=== PATIENT | male | born 2000 | race African-American/Black ===

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

== ENCOUNTER 2023-07-10 11:02 | Emergency (ER) | payer OTHER ==
--- NOTE | 2023-07-10 11:58 | ED ---
Chest Pain HPI - General Chief Complaint: Chest Pain Stated Complaint: chest tightness Time Seen by Provider: 07/10/23 11:54 Source: patient, RN notes reviewed Mode of arrival: ambulatory Limitations: no limitations - History of Present Illness Initial Comments: This is a 23 year old male who presents to the emergency department for chest pain. States that this started 2 days ago and describes this as a tightness. He reports a history of asthma, and states that chest tightness typically occurs with this, but not to this severity. He saw his PCP today, who said that he tested positive for Covid and influenza. (Tests are negative in the ED). She also noticed that his eyes were jaundice and his urine was very dark. She was concerned about his liver and kidney function, and sent him to the emergency department for further evaluation. Patient believes that his eyes have been yellow for 2-3 days. States that he has also had a reduced appetite, nausea, headaches, and fatigue for the last couple of days. MD Complaint: chest pain - Related Data Home Medications Medication Instructions Recorded Confirmed Azithromycin [Zithromax Z-pack (6 See Taper PO DAILY 07/10/23 07/10/23 tabs)] Allergies Allergy/AdvReac Type Severity Reaction Status Date / Time ibuprofen [From Motrin] Allergy Anaphylaxis Verified 07/10/23 16:25 Review of Systems ROS Statement: Those systems with pertinent positive or pertinent negative responses have been documented in the HPI. ROS Other: All systems not noted in ROS Statement are negative. Past Medical History Past Medical History: Asthma History of Any Multi-Drug Resistant Organisms: None Reported Past Surgical History: No Surgical Hx Reported Past Psychological History: ADD/ADHD Smoking Status: Current every day smoker Past Alcohol Use History: None Reported Past Drug Use History: None Reported, Marijuana General Exam - General Exam Comments Initial Comments: Visual Physical Exam Vital signs reviewed General: Well-appearing, nontoxic, no acute distress. Head: Normocephalic, atraumatic Eyes: PERRLA, EOMI ENT: Airway patent Chest: Nonlabored breathing Skin: No visual rash, normal skin tone Neuro: Alert and oriented 3 Musculoskeletal: No gross abnormalities Limitations: no limitations General appearance: alert, in no apparent distress Head exam: Present: atraumatic, normocephalic, normal inspection Eye exam: Present: scleral icterus Respiratory exam: Present: decreased breath sounds, prolonged expiratory Cardiovascular Exam: Present: regular rate, normal rhythm, normal heart sounds. Absent: systolic murmur, diastolic murmur, rubs, gallop, clicks GI/Abdominal exam: Present: soft, normal bowel sounds. Absent: distended, tenderness, guarding, rebound, rigid Neurological exam: Present: alert, oriented X3, CN II-XII intact Psychiatric exam: Present: normal affect, normal mood Skin exam: Present: other (jaundice) Course Vital Signs 07/10/23 07/10/23 07/10/23 11:17 15:00 15:03 Temperature 99.4 F 99.2 F Pulse Rate 105 H 110 H Respiratory 16 18 17 Rate Blood Pressure 134/86 131/86 O2 Sat by Pulse 98 98 Oximetry 07/10/23 07/10/23 07/10/23 16:25 16:52 16:58 Temperature 99.1 F Pulse Rate 89 104 H 96 Respiratory 18 Rate Blood Pressure 115/75 O2 Sat by Pulse 99 Oximetry 07/10/23 07/10/23 07/10/23 17:29 17:39 18:12 Temperature 98.9 F Pulse Rate 100 94 126 H Respiratory 18 Rate Blood Pressure 115/72 O2 Sat by Pulse 98 Oximetry 07/10/23 07/10/23 19:32 23:05 Temperature 99.2 F 99.2 F Pulse Rate 111 H 103 H Respiratory 20 18 Rate Blood Pressure 128/78 137/99 O2 Sat by Pulse 100 100 Oximetry Chest Pain MDM - MDM This is a 23-year-old male who presents to the emergency department for chest pain. Was pt. sent in by a medical professional or institution? @ -His admitted attorneys Did you speak to anyone other than the patient for history? @ -No Did you review nursing and triage notes? @ -Yes, and I agree, it is accurate with regards to the patient's symptoms. Were old charts reviewed? @ -No Differential Diagnosis? @ -Differential Chest Pain: Stable Angina, Unstable Angina, STEMI, NSTEMI Aortic Dissection, Pneumothorax, Musculoskeletal, Esophageal Spasm GERD, Cholecystitis, Pancreatitis, Zoster, this is not meant to be an all-inclusive list. EKG interpreted by me (3pts min.)? @ -EKG interpreted by me demonstrating the following: Sinus tachycardia. Ventricular rate 118 BPM, VA interval 151 ms, QRS duration 93 ms, QTc 380 ms. X-rays interpreted by me (1pt min.)? @ -Chest x-ray obtained, my interpretation identifies no localized consolidations or infiltrates. CT interpreted by me (1pt min.)? @ -Not obtained U/S interpreted by me (1pt. min.)? @ -Gallbladder US obtained. My interpretation identifies no evidence of gallbladder wall thickening. What testing was considered but not performed? (CT, X-rays, U/S, labs)? Why? @ -None What meds were considered but not given? Why? @ -None Did you discuss the management of the patient with other professionals? @ -Dr. Garcia with [facility], who declined admission given that we do not have GI available. Dr. Castillo, ED attending, discussed the case with [facility] ED attending, Dr. Artis, who was agreeable to transfer, but advised giving the patient the option of outpatient follow up as well. Did you reconcile home meds? @ -No Was smoking cessation discussed for >3mins.? @ -No Was critical care preformed (if so, how long)? @ -No Were there social determinants of health that impacted care today? How? (Homelessness, low income, unemployed, alcoholism, drug addiction, transportation, low edu. Level, literacy, decrease access to med. care, fdc, rehab)? @ -No Was there de-escalation of care discussed even if they declined? (Discuss DNR or withdrawal of care, Hospice)? @ -No What co-morbidities impacted this encounter? (DM, HTN, Smoking, COPD, CAD, Cancer, CVA, Hep., AIDS, mental health diagnosis, sleep apnea, morbid obesity)? @ -Asthma Was patient admitted / discharged? @ -Transferred. Lab work obtained demonstrating leukocytosis and elevated LFTs with a total bilirubin of 6.2, unconjugated of 5.1, and normal conjugated of 0.2. AST, ALT, and alkaline phosphatase are also mildly elevated. Chest x-ray obtained revealing no acute process. Gallbladder US obtained revealing biliary sludge without other acute process. COVID, influenza, RSV, and heterophile testing negative. Patient given 2 duoneb treatments with only mild relief in symptoms. Zofran administered for nausea which was effective and he was tolerating oral intake. Hepatitis panel sent, however results are not immediately available. The cause of the unconjugated hyperbilirubinemia is not clear at this time. In discussion with ED attending, Dr. Castillo, we feel that the patient needs more of a workup regarding this given the acute onset of his symptoms/jaundice and lack of explanation. Case discussed with admitting physician here, Dr. Garcia, who declined admission since we do not have GI available at our facility. Dr. Castillo, ED attending, discussed case with ED physician, Dr. Artis, at [facility], who advised giving the patient the option of transfer vs outpatient follow up. This was discussed with the patient who states that he continues to feel very ill and has not felt this bad before. The local hydro operator also does not have any appointments available for several months and there is concern about his ability to follow up. Patient subsequently transferred to [facility] as an ED to ED transfer for further evaluation. Dr. Artis is the accepting ED physician. Undiagnosed new problem with uncertain prognosis? @ -None Drug Therapy requiring intensive monitoring for toxicity (Heparin, Nitro, Insulin, Cardizem)? @ -None Were any procedures done? @ -None Diagnosis/symptom? @ -Elevated bilirubin, chest pain, fatigue Acute, or Chronic, or Acute on Chronic? @ -Acute Uncomplicated (without systemic symptoms) or Complicated (systemic symptoms)? @ -Complicated Side effects of treatment? @ -None Exacerbation, Progression, or Severe Exacerbation] @ -Not applicable Poses a threat to life or bodily function? @ -Yes This case was discussed in detail with the attending ED physician, Dr. Castillo. Presentation, findings, and treatment plan discussed in detail as well. Disposition Clinical Impression: Chest pain, Fatigue, Unconjugated hyperbilirubinemia Disposition: OTHER INSTITUTION NOT DEFINED Referrals: Gifty Cartagena MD [Primary Care Provider] - 1-2 days - Out of Hospital Transfer - Req. Specs Out of Hospital Transfer - Requested Specifics: Other Emergency Center ([facility])
--- NOTE | 2023-07-10 12:14 | XR ---
EXAMINATION TYPE: XR chest 2V DATE OF EXAM: 07/10/2023 COMPARISON: 04/06/2019 INDICATION: Cough and congestion influenza A TECHNIQUE: Frontal and lateral views of the chest are obtained. FINDINGS: The heart size is normal. The pulmonary vasculature is normal. The lungs are clear. IMPRESSION: 1. No acute pulmonary process.
[2023-07-10] MEDS ORDERED: IPRATROPIUM-ALBUTEROL 3 ML NEB INHALATION STA ×2 (14:52→17:12)
[2023-07-10] MEDS ORDERED: SODIUM CHLORIDE 0.9% 1,000 ML IV STA (14:53)
[2023-07-10] MEDS ORDERED: ONDANSETRON 4 MG/2 ML VIAL IVP STA (15:13)
[2023-07-10 15:37] LABS: HCT 46.9 % (39.0-53.0); HGB 16.6 gm/dL (13.0-17.5); MCHC 35.4 g/dL (31.0-37.0); MCV 93.2 fL (80.0-100.0); Mean Platelet Volume 9.7; Platelet Count 167 k/uL (150-450); RBC 5.03 m/uL (4.30-5.90); WBC 12.7 k/uL (3.8-10.6)
[2023-07-10 15:54] LABS: ALT 60 U/L (4-49); AST 65 U/L (17-59); African American GFR (CKD) >90 (>60 ml/min/1.73 sqM); Albumin 4.8 g/dL (3.5-5.0); Alkaline Phosphatase 223 U/L (38-126); Anion Gap 16 mmol/L; Bilirubin, Conjugated 0.2 mg/dL (0.0-0.3); Bilirubin, Delta 0.9 mg/dL (0.0-0.2); Bilirubin,Unconjugated 5.1 mg/dL (0.0-1.1); Blood Urea Nitrogen 15 mg/dL (9-20); Calcium 9.8 mg/dL (8.4-10.2); Carbon Dioxide 26 mmol/L (22-30); Chloride 93 mmol/L (98-107); Glucose 107 mg/dL (74-99); Non-African American GFR(CKD) >90 (>60 ml/min/1.73 sqM); Sodium 135 mmol/L (137-145); Total Bilirubin 6.2 mg/dL (0.2-1.3); Total Protein 8.5 g/dL (6.3-8.2)
[2023-07-10 15:57] LABS: Band Neutrophils % 3 %; Lymphocytes # (M) 1.27 k/uL (1.0-4.8); Monocytes # (M) 1.65 k/uL (0-1.0); Neutrophils % (M) 74 %; Nucleated Red Blood Cells 0 /100 WBC (0-0); Total Cells Counted 100
[2023-07-10 15:59] LABS: RBC Morphology Normal
[2023-07-10] MEDS ORDERED: methylPREDNISolone SOD SUCCI 125 MG/2 ML VIAL IV STA (16:36)
[2023-07-10 18:05] LABS: Appearance,Urine Cloudy (Clear); Bilirubin,Urine 1+ (Negative); Blood,Urine Trace (Negative); Color,Urine Orange; Glucose,Urine (UA) Negative (Negative); Ketones,Urine 2+ (Negative); Leukocyte Esterase,Urine Negative (Negative); Mucus,Urine Many /hpf; Nitrite,Urine Negative (Negative); Protein,Urine 2+ (Negative); RBC,Urine 9 /hpf (0-5); Specific Gravity,Urine 1.039 (1.001-1.035); Squamous Epithelial Cell,Urine 1 /hpf (0-4); Urobilinogen,Urine >12.0 mg/dL (<2.0); WBC,Urine 4 /hpf (0-5)
[2023-07-10 18:18] LABS: Amphetamine Screen,Urine Not Detected (NotDetected); Barbiturate Screen,Urine Not Detected (NotDetected); Benzodiazepines Screen,Urine Not Detected (NotDetected); Cocaine Screen,Urine Not Detected (NotDetected); Methadone Screen, Urine Not Detected (NotDetected); Opiate Screen,Urine Not Detected (NotDetected); Oxycodone Screen, Urine Not Detected (NotDetected); Phencyclidine Screen,Urine Not Detected (NotDetected); Tricyclic Antidepressant,Urine Not Detected (NotDetected); Urn Cannabinoid Scrn Detected (NotDetected)
[2023-07-10 18:19] LABS: Amylase 57 U/L (30-110); Lipase 41 U/L (23-300)
--- NOTE | 2023-07-10 18:19 | US ---
EXAMINATION TYPE: US gallbladder DATE OF EXAM: 07/10/2023 COMPARISON: 10/29/18 CLINICAL INDICATION: Male, 23 years old with history of Elevated LFTs; Left sided abdominal pain that is worsening since Saturday. Elevated LFT's TECHNIQUE: Multiple sonographic images of the right upper quadrant are obtained. FINDINGS: EXAM MEASUREMENTS: Liver Length: 17.8 cm Gallbladder Wall: 0.15 cm CBD: 0.23 cm Right Kidney: 9.5 x 5.7 x 4.9 cm [employer]ER NOTES: Pancreas: Tail obscured by bowel gas. Parts appear wnl Liver: Measures 17.8 cm in length. Gallbladder: Layering biliary sludge seen. Evidence for sonographic Kat's sign: No CBD: wnl Right Kidney: wnl IMPRESSION: 1. Normal appearance of the hepatic parenchyma. 2. Biliary sludge.
[2023-07-10 19:40] VITALS: TEMP 99.2
[2023-07-10 23:34] VITALS: BP 137/99; PULSE 103; RESP 18
[2023-07-11 05:31] LABS: Hepatitis A Antibody IgM Nonreactive; Hepatitis B Core IgM Nonreactive; Hepatitis B Surface Antigen Nonreactive; Hepatitis C IgG Antibody Nonreactive
== END 2023-07-11 00:11 | disposition other institution (70) ==
LOC: EC 11:02
DX: R07.89 Other chest pain (principal); E80.6 Other disorders of bilirubin metabolism; R74.8 Abnormal levels of other serum enzymes; R17 Unspecified jaundice; D72.829 Elevated white blood cell count, unspecified; R79.89 Other specified abnormal findings of blood chemistry; R74.01 Elevation of levels of liver transaminase levels; R00.0 Tachycardia, unspecified; J45.909 Unspecified asthma, uncomplicated; F17.200 Nicotine dependence, unspecified, uncomplicated; F12.90 Cannabis use, unspecified, uncomplicated; Z20.822 Contact with and (suspected) exposure to COVID-19; Z88.6 Allergy status to analgesic agent
CPT/HCPCS: 99285; 96374; 96375; 96361; 36415; 94640 ×2; 93005; 80053; 80074; 82150; 82248; 83690; 84484; 85025; 86308; 81001; 80306; 87636; 71046; 76705; J2930; J2405